=== PATIENT | female | born 1990 | race Asian ===

== ENCOUNTER 2020-12-13 22:25 | Inpatient (IN) ==
[2020-12-13] MEDS ORDERED: Buffered Lidocaine 1% SYRIN 1 ml INTRADERM ONE (23:06)
[2020-12-14] MEDS ORDERED: Dinoprostone 10 MG VAG.SUPP VAGINAL ONE (04:42)
[2020-12-14] MEDS ORDERED: Lactated Ringers 1000 ml BAG 1,000 ML IV ONE (04:42)
[2020-12-14] MEDS ORDERED: Buffered Lidocaine 1% SYRIN 1 ml INTRADERM ONE (04:42)
[2020-12-14 05:42] LABS: ABS Lymphocytes 1.3 10^3/ul (1.0-4.8); ABS Monocytes 0.5 10^3/ul (0-0.8); ABS Neutrophils 4.7 10^3/ul (1.5-7.7); Eosinophil % 0.5 %; Hematocrit 33 % (35-47); Lymphocyte % 20.1 %; Mean Corpuscular HGB Conc 34 g/dL (31-36); Mean Corpuscular Hemoglobin 30 pg (27-31); Mean Corpuscular Volume 89 fL (80-97); Mean Platelet Volume 9.2 fL (7.4-10.4); Platelet Count 166 10^3/uL (150-450); Red Blood Count 3.65 10^6 /uL (3.70-4.87); Red Cell Distribution Width 15 % (10-15); White Blood Count 6.5 10^3/uL (3.5-10.8)
[2020-12-14 06:11] LABS: Urine Benzodiazepine Screen None Detected (None Detect); Urine Cannabinoids Screen None Detected (None Detect); Urine Opiates Screen None Detected (None Detect)
[2020-12-14] MEDS ORDERED: Morphine 10 MG/ML VIAL (1 ml) IM ONE (19:25)
[2020-12-14] MEDS ORDERED: Promethazine INJ(RESTRICTED) 25 MG/ML 1 ml VIAL IV PRN (19:26)
[2020-12-15] MEDS: Lactated Ringers 1000 ml BAG 1,000 ML IV SCH ×3 (07:50→16:50)
[2020-12-15] MEDS ORDERED: OXYTOCIN IVPB SCH (08:00)
[2020-12-15] MEDS ORDERED: [UNRECOGNIZED DRUG - OTHER] IVPB SCH (08:00)
[2020-12-15] MEDS ORDERED: OBEPIDURAL 250 ML EPIDURAL ONE (09:42)
[2020-12-15] MEDS ORDERED: Sodium Citrate/Citric Acid LIQ 15 ML UDC PO PRN (10:35)
[2020-12-15] MEDS ORDERED: Phenylephrine 40 mcg/mL 10mL (400mcg) SYRINGE IV PUSH PRN ×2 (10:35)
[2020-12-15] MEDS ORDERED: Lactated Ringers 1000 ml BAG 1,000 ML IV ONE (10:35)
[2020-12-15] MEDS ORDERED: OBEPIDURAL 250 ML EPIDURAL SCH (11:00)
[2020-12-15] MEDS ORDERED: Lactated Ringers 1000 ml BAG 1,000 ML IV SCH ×2 (11:00→19:00)
[2020-12-15 12:19] LABS: Urine Appearance Clear; Urine Bilirubin Negative (Negative); Urine Blood 1+ (Negative); Urine Color Straw; Urine Glucose 1+(50 mg/dL) (Negative); Urine Ketones 1+ (Negative); Urine Nitrite Negative (Negative); Urine Protein Negative (Negative); Urine Specific Gravity 1.003 (1.002-1.030); Urine Urobilinogen Negative (Negative)
[2020-12-15 12:25] LABS: Urine Bacteria Absent (Absent); Urine Red Blood Cell Trace(0-2/hpf) (Absent); Urine White Blood Cell Absent (Absent)
[2020-12-15] MEDS ORDERED: Dibucaine 1% OINT 28.35 GM TUBE ONE (17:55)
[2020-12-15] MEDS ORDERED: Witch Hazel PAD JAR ONE (17:55)
[2020-12-15] MEDS ORDERED: Glycerin ADULT 2.4 gm SUPP PR PRN (18:02)
[2020-12-15] MEDS ORDERED: Dibucaine 1% OINT 28.35 GM TUBE PR PRN (18:02)
[2020-12-15] MEDS ORDERED: Witch Hazel PAD JAR TOPICAL PRN (18:02)
[2020-12-15] MEDS ORDERED: Oxytocin in LR 20 UNITS/1,000 ML BAG IVPB SCH (19:00)
[2020-12-16] MEDS ORDERED: Lidocaine 1% VIAL 10 MG/ML VIAL ONE (01:18)
[2020-12-16 08:45] LABS: ABS Lymphocytes 1.5 10^3/ul (1.0-4.8); ABS Monocytes 0.6 10^3/ul (0-0.8); ABS Neutrophils 8.8 10^3/ul (1.5-7.7); Eosinophil % 0.3 %; Hematocrit 26 % (35-47); Hemoglobin 8.7 g/dL (12.0-16.0); Mean Corpuscular HGB Conc 33 g/dL (31-36); Mean Corpuscular Hemoglobin 30 pg (27-31); Mean Corpuscular Volume 89 fL (80-97); Mean Platelet Volume 8.8 fL (7.4-10.4); Platelet Count 142 10^3/uL (150-450); Red Blood Count 2.91 10^6 /uL (3.70-4.87); Red Cell Distribution Width 15 % (10-15)
[2020-12-17 07:59] VITALS: BP 99/56
== END 2020-12-17 12:44 | disposition home or self-care (01) ==
LOC: MCHOBOUT 22:25 → MCHOB 12-14 04:43
PROVIDERS: ADMIT Obstetrics & Gynecology; ATTEND Obstetrics & Gynecology